=== PATIENT | male | born 1990 | race Caucasian/White ===

== ENCOUNTER 2018-08-24 09:30 | Emergency (ER) | payer OTHER ==
[2018-08-24] MEDS ORDERED: DEXAMETHASONE 10 MG/ML VIAL PO STA (10:21)
[2018-08-24] MEDS ORDERED: CHERRY SYRUP 10 ML UDC PO ONE (10:21)
--- NOTE | 2018-08-24 10:24 | ED Physician Documentation ---
PD HPI CHEST PAIN - Stated complaint Stated Complaint: CHEST PAIN - Chief complaint Chief Complaint: Cardiac - History obtained from History obtained from: Patient - History of Present Illness Timing - onset: How many days ago (2) Timing - onset during: Rest Timing - duration: Days (2) Timing - details: Gradual onset, Still present Quality: Sharp, Pain Location: Substernal Radiation: No: Jaw, Neck, Back Improved by: Rest Worsened by: Inspiration, Movement, Palpation Associated symptoms: Shortness of air, Cough. No: Diaphoresis, Nausea, Vomiting, Feeling faint / dizzy, General Weakness, Palpitations Similar symptoms before: Has not had sx before Recently seen: Not recently seen - Additional information Additional information: Previously well 28-year-old male went on a run yesterday and following that he developed some pain in his anterior chest. He is continued to have this pain he feels it it is worse if he takes a deep breath and if he pushes on his chest wall. He does complain of some decreased hearing over the past week and a mild cough with some postnasal drainage. He has never used an inhaler previously. Review of Systems Constitutional: denies: Fever Eyes: denies: Decreased vision Ears: reports: Loss of hearing, Ear pain Nose: reports: Rhinorrhea / runny nose, Congestion Throat: denies: Sore throat Cardiac: reports: Chest pain / pressure. denies: Palpitations, Pedal edema, Calf pain Respiratory: reports: Dyspnea, Cough GI: denies: Abdominal Pain, Nausea, Vomiting : denies: Dysuria, Frequency PD PAST MEDICAL HISTORY - Past Surgical History Past Surgical History: No - Present Medications Home Medications: Ambulatory Orders Medication Instructions Recorded Confirmed Zolpidem [Ambien] 10 mg PO HS 08/17/13 08/24/18 traMADol [Ultram] 50 mg PO Q4-6H PRN 08/17/13 08/24/18 Ibuprofen 600 mg PO TID #20 tablet 07/29/14 08/24/18 Amox/Clav 875/125 [Augmentin] 1 each PO Q12H #20 tablet 08/24/18 Nortriptyline HCl [Pamelor] 25 mg PO DAILY 08/24/18 08/24/18 Sertraline [Zoloft] 25 mg PO DAILY 08/24/18 08/24/18 - Allergies Allergies/Adverse Reactions: Allergies Allergy/AdvReac Type Severity Reaction Status Date / Time No Known Drug Allergies Allergy Verified 08/24/18 09:39 - Social History Does the pt smoke?: No Smoking Status: Never smoker Does the pt drink ETOH?: No Does the pt have substance abuse?: No PD ED PE NORMAL - Vitals Vital signs reviewed: Yes (normal ) - General General: Alert and oriented X 3, No acute distress, Well developed/nourished - HEENT HEENT: Atraumatic, PERRL, EOMI, Other (both TM's are inflamed with distortion of the landmarks. ) - Neck Neck: Supple, no meningeal sign, No bony TTP - Cardiac Cardiac: RRR, No murmur - Respiratory Respiratory: No respiratory distress, Clear bilaterally, Other (There is chest wall point tenderness along the sternum bilaterally that reproduces the symptoms the patietn is being evaluated for. ) - Abdomen Abdomen: Soft, Non tender - Back Back: No CVA TTP, No spinal TTP - Derm Derm: Normal color, Warm and dry, No rash - Extremities Extremities: No deformity, No edema - Neuro Neuro: Alert and oriented X 3, rn urology 2-12 intact, No motor deficit, No sensory deficit, Normal speech Eye Opening: Spontaneous Motor: Obeys Commands Verbal: Oriented GCS Score: 15 - Psych Psych: Normal mood, Normal affect Results - Vitals Vitals: Vital Signs - 24 hr 08/24/18 08/24/18 09:37 10:21 Temperature 36.2 C L Heart Rate 65 70 Respiratory 14 14 Rate Blood Pressure 125/62 136/72 H O2 Saturation 98 94 Oxygen O2 Source Room air - EKG (time done) 0939 Rate: Rate (enter#) (60) Rhythm: NSR Ischemia: Normal ST segments Compare to prior EKG: Old EKG unavailable Computer interpretation: Agree with computer PD MEDICAL DECISION MAKING - ED course Complexity details: reviewed results, re-evaluated patient, considered differential, d/w patient ED course: 28-year-old male with chest pain after a run yesterday has chest wall tenderness with costochondritis and I believe his trigger for the costochondritis is some mild reactive airway disease present over the past week with otitis media. He is treated for the otitis with dexamethasone 10 mg orally we will place him on some Augmentin and we have given him a shot of Toradol for the immediate pain relief. I did discuss with the patient use of an inhaler and he has good airway movement right this minute and I suspect he will have improvement with treatment of the otitis. Departure - Departure Disposition: 01 Home, Self Care Clinical Impression: Costochondritis, acute Otitis media Qualifiers: Otitis media type: suppurative Chronicity: acute Laterality: bilateral Recurrence: not specified as recurrent Spontaneous tympanic membrane rupture: without spontaneous rupture Qualified Code(s): H66.003 - Acute suppurative otitis media without spontaneous rupture of ear drum, bilateral Condition: Stable Instructions: ED Otitis Media Acute Adult Follow-Up: Trinh Saldana MD [Primary Care Provider] - Prescriptions: Amox/Clav 875/125 [Augmentin] 1 each PO Q12H #20 tablet Forms: Activity restrictions
[2018-08-24] MEDS ORDERED: KETOROLAC 60 MG/2 ML VIAL IM STA (10:26)
[2018-08-24 11:12] VITALS: BP 126/78
== END 2018-08-24 11:12 | disposition home or self-care (01) ==
LOC: ED 09:30
DX: M94.0 Chondrocostal junction syndrome [Tietze] (principal); H66.003 Acute suppurative otitis media without spontaneous rupture of ear drum, bilateral
CPT/HCPCS: 93005; 96372; 99283; A9270

== ENCOUNTER 2023-10-26 14:06 | Outpatient (CLI) | payer OTHER ==
--- NOTE | 2023-10-26 16:07 | MRI Report ---
PROCEDURE: Lumbar Spine WO INDICATIONS: LOW BACK PAIN TECHNIQUE: Noncontrast sagittal T1 spin echo and T2 fast echo, sagittal STIR, axial T1 and T2 fast spin echo thr ough the lumbar spine. In cases with scoliosis, additional coronal T2 fast spin echo may be performe d. COMPARISON: MRI lumbar spine 3:15 FINDINGS: Image quality: Excellent. Alignment and Curvature: There is normal bony alignment. Bone Marrow: Marrow is of normal overall signal. Mild reactive endplate changes are present L4-5, L 5-S1. No acute vertebral body compression fractures. Spinal Cord: Conus medullaris terminates at the L1 level. Visualized cord demonstrates normal signa l and size. Paraspinous Soft Tissues: No paravertebral masses. Discs: Moderate desiccation is present L4-5, L5-S1. T12-L1: No disc bulge, spinal stenosis or foraminal narrowing. No interval change. L1-L2: Minimal disc bulge without spinal stenosis or foraminal narrowing. Mild facet hypertrophy. Minimal interval progression. L2-L3: Minimal disc bulge without spinal stenosis or foraminal narrowing. Facet and ligamentum fla vum hypertrophy are present. Minimal interval progression. L3-L4: Mild disc bulge without spinal stenosis or foraminal narrowing. Facet and ligamentum flavum hypertrophy are present. Minimal interval progression. L4-L5: Mild disc bulge without spinal stenosis right foraminal narrowing. Facet and ligamentum flav um hypertrophy are present. Minimal interval progression. L5-S1: Mild disc bulge with small superimposed protrusion. No spinal stenosis. Moderate bilateral f oraminal narrowing progressive compared to prior exam. IMPRESSION: Multilevel degenerative changes of most notable interval progression is foraminal narrowing at L5-S1. Reviewed by: Teri Ross MD on 10/26/2023 4:06 PM PDT Approved by: Teri Ross MD on 10/26/2023 4:06 PM PDT Station ID: [id number]
== END 2023-10-26 14:07 | disposition home or self-care (01) ==
LOC: DI 14:06
PROVIDERS: ATTEND Family Medicine
DX: M47.816 Spondylosis without myelopathy or radiculopathy, lumbar region (principal); M51.36 Other intervertebral disc degeneration, lumbar region; M51.37 Other intervertebral disc degeneration, lumbosacral region; M48.07 Spinal stenosis, lumbosacral region; M51.27 Other intervertebral disc displacement, lumbosacral region